=== PATIENT | female | born 1990 | race Two or more races ===

== ENCOUNTER → 2016-05-26 | Outpatient (REF) | payer OTHER | LOC: M SFHCLERA 09:32 | PROVIDERS: ATTEND Nurse Practitioner Family | DX: J02.9 Acute pharyngitis, unspecified (principal) ==

== ENCOUNTER → 2016-05-26 | Outpatient (CLI) | payer OTHER ==
--- NOTE | 2016-05-26 09:51 | REP ---
Clinical: Productive cough and shortness of breath . Comparison: None . Technique: PA and lateral. Findings: The mediastinum and cardiac silhouette are normal. The lung gallegos are clear and without acute consolidation, effusion, or pneumothorax. The skeletal structures are intact and normal. Impression: 1. No acute cardiopulmonary process. Signed by Jamal Ordoñez MD 05/26/2016 09:43 A
== END ==
LOC: M LRY 09:23
PROVIDERS: ATTEND Nurse Practitioner Family
DX: J02.9 Acute pharyngitis, unspecified (principal); M54.6 Pain in thoracic spine; R05 Cough
CPT/HCPCS: 71020; G0463